=== PATIENT | female | born 1965 | race Caucasian/White ===

== ENCOUNTER 2023-04-27 09:00 | Outpatient (CLI) | payer BC, MEDICAID, SELFPAY ==
--- NOTE | 2023-04-27 09:15 | CRLHL7_ITS ---
For Patients: As a result of the Cures Act, medical imaging exams and procedure reports are released immediately into your electronic medical record. You may view this report before your referring provider. If you have questions, please contact your health care provider. INDICATION: History of DVT, noncompliant Eliquis user. COMPARISON: None. TECHNIQUE: A compression venous ultrasound exam was performed of both lower extremities using webster scale imaging, color Doppler and spectral Doppler analysis. FINDINGS: Right: Sonographic imaging of the right lower extremity demonstrates normal compressibility and color Doppler venous blood flow within the common femoral, femoral, deep femoral, and proximal greater saphenous veins. At a lower level the popliteal, peroneal, and posterior tibial veins also show normal compressibility and color Doppler venous blood flow. 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 Left: Sonographic imaging of the left lower extremity demonstrates normal compressibility and color Doppler venous blood flow within the common femoral, femoral, deep femoral, and proximal greater saphenous veins. At a lower level the popliteal, peroneal, and posterior tibial veins also show normal compressibility and color Doppler venous blood flow. IMPRESSION: Negative for acute DVT in the lower extremities. Dictated by Drea Beauchamp MD @ 04/28/2023 12:45:35 AM (Electronically Signed)
== END 2023-04-27 09:01 | disposition home or self-care (01) ==
LOC: US 09:00
PROVIDERS: PCP Nurse Practitioner Family; Visit Provider Nurse Practitioner Family
DX: Z86.718 Personal history of other venous thrombosis and embolism (principal)
CPT/HCPCS: 93970

== ENCOUNTER 2023-07-01 12:30 | Outpatient (RCR) | payer BC, SELFPAY ==
--- NOTE | 2023-06-17 11:26 | PT.OPEX ---
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 Always a little bit of pain. Some nights it can be severe pain. Pain will increase with bending, lifting, carrying and standing. Pain is bad with gardening, folding clothes or standing for 10 minutes to do dishes. When bringing vegetables in to clean she needed to sit to do it. Sitting is generally ok especially in her recliner. Can get some pain at times in R LE which will go into her quad and behind her knee. Sitting in recliner will help this. 2021 fell back and did have hairline fracture of her coccyx. Her back pain was already and issue. No specific injury caused her pain. She has had LBP for 3-5 years. Pain Comments 04/15 Current Work Status Unemployed Objective Range of Motion Trunk ROM Flex WNL - eased pain Ext mod/katherine dec R SB min dec with R LBP L SB min dec with R thigh pain Hip ROM Flex L 100 deg with LBP, 100 deg with LBP ER L 40 deg with L LBP, 65 deg with LBP IR 5 deg with L LBP, 15 deg with LBP Strength MMT Myotomes WNL - General weakness throughout LEs Trunk flex 3+/5 Trunk Ext 3+/5 Palpation Palpable pain bilat lumbar paraspinals Sensation/Reflexes Sensation intact to light touch Functional Test Performed & Score Mod Oswestry LBP score 56 Assessment Assessment/Impression Pt presents to the clinic with long standing issues of LBP. Pt demonstrates significant loss of lumbar ROM with associated pain, decrease hip ROM with LBP, significant trunk weakness with general deconditioning, painful hypomobility of lumbar spine segments and poor lumbopelvic motor control. Skilled PT is necessary to incorporate ther ex, nm minda, ther act, manual therapy and pt education to decrease pain and improve functional mobility. Primary Functional Limitations Poor tolerance with walking, standing, completing conveyor belt operator Plan of Care Rehabilitation Potential Good Physical Therapy Goals 1. Pt will be 100% independent with HEP in 6 weeks. 2. 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 3. Pt will walk for exercise up to 25 minutes with 75% decrease in pain in 12 weeks. Coordination/Communication With Referral Source Treatment Plan/Direct Interventions Joint Mobilization,Manual Therapy,Neuromuscular Re-ed, Self-Care/Home Management, Therapeutic Activities, Therapeutic Exercises Frequency/Duration 1x/wk for 12 weeks Patient Will Be Discharged From Therapy Completion of LTG(s),Skills Plateau,Independent w/HEP, Independently Progressing Evaluation Billing Untimed Code Treatment Minutes 30 Complexity Moderate Certification Information Initial Certification Date 06/17/23 Ending Certification Date 09/15/23 Provider Signature Shows Agreement With POC & Medical Necessity Physician Signature & Date Requested Please Sign/Date Here Physician Comment/Change : Physician NPI Number #
== END 2023-10-29 23:59 | disposition home or self-care (01) ==
PROVIDERS: PCP Nurse Practitioner Family; Visit Provider Nurse Practitioner Family
DX: M54.9 Dorsalgia, unspecified (principal); Z51.89 Encounter for other specified aftercare
CPT/HCPCS: 97110; 97140; 97162

== ENCOUNTER 2023-12-20 13:29 | Outpatient (CLI) | payer BC, SELFPAY | END 2023-12-20 13:30 | disposition home or self-care (01) | PROVIDERS: PCP Nurse Practitioner Family; Visit Provider Nurse Practitioner Family | DX: M79.671 Pain in right foot (principal); Z13.1 Encounter for screening for diabetes mellitus; E53.8 Deficiency of other specified B group vitamins | CPT/HCPCS: 80048; 82607; 84550; 85025; 85651; 86140 ==

== ENCOUNTER 2024-01-27 08:02 | Outpatient (CLI) | payer BC, SELFPAY ==
--- NOTE | 2024-01-27 08:15 | CRLHL7_ITS ---
For Patients: As a result of the Century Cures Act, medical imaging exams and procedure reports are released immediately into your electronic medical record. You may view this report before your referring provider. If you have questions, please contact your health care provider. INDICATION: Low back pain. TECHNIQUE: Routine multi sequence multi planar MRI imaging of the lumbar spine. FINDINGS: Sagittal alignment within normal limits. Mild convex left lumbar curve. No acute compression fractures. The conus medullaris and distal spinal cord appear normal in morphology and signal at the conus terminates normally at the L1-2 interspace. No disc herniation or stenosis at T11-12 or T12-L1. At L1-2 mild anterior disc bulging per discal spurring no posterior disc herniation or stenosis the spinal canal or neural foramen. At L2-3 degenerative disc desiccation mild annular bulge without stenosis of the spinal canal or neural foramen mild facet degeneration. At L3-4 degenerative disc desiccation mild disc bulging without stenosis of the spinal canal or neural foramen. At L4-5 normal disc height and disc hydration without disc herniation or stenosis the spinal canal or neural foramen. At L5-S1 mild central disc desiccation minor posterior annular bulge mild facet hypertrophy without stenosis of the spinal canal or neural foramen. Included portions of the sacroiliac joints are unremarkable. IMPRESSION: 1. Mild multilevel lumbar spondylosis. Mild lumbar curve. 2. Mild disc degeneration at the L1-2, L2-3, L3-4 and L5-S1 levels. 3. No high-grade central or lateral stenosis nor specific lumbosacral nerve impingement. Dictated by Abad Ty MD @ 01/28/2024 7:26:05 AM (Electronically Signed)
== END 2024-01-27 08:03 | disposition home or self-care (01) ==
LOC: MRI 08:02
PROVIDERS: PCP Nurse Practitioner Family; Visit Provider Nurse Practitioner Family
DX: M54.50 Low back pain, unspecified (principal); M47.896 Other spondylosis, lumbar region; M51.36 Other intervertebral disc degeneration, lumbar region; M51.27 Other intervertebral disc displacement, lumbosacral region
CPT/HCPCS: 72148

== ENCOUNTER 2024-05-18 15:23 | Outpatient (CLI) | payer BC, SELFPAY | END 2024-05-18 15:24 | disposition home or self-care (01) | PROVIDERS: PCP Nurse Practitioner Family; Visit Provider Nurse Practitioner Family | DX: E55.9 Vitamin D deficiency, unspecified (principal); R25.2 Cramp and spasm; E78.5 Hyperlipidemia, unspecified; Z13.0 Encounter for screening for diseases of the blood and blood-forming organs and certain disorders involving the immune mechanism | CPT/HCPCS: 80053; 80061; 82306; 83735; 85025 ==

== ENCOUNTER 2024-08-20 12:50 | Emergency (ER) | payer BC, SELFPAY ==
[2024-08-20 12:57] VITALS: BP 127/75; PULSE 87; RESP 18; TEMP 36.3; O2SAT 96; BMI 33.6
--- NOTE | 2024-08-20 13:01 | ED.GENADULT ---
HPI - General Adult General Time Seen by Provider: 13:02 Date Seen: 08/20/24 Chief complaint: Cough Stated complaint: Bronchitis for three weeks Time Seen by Provider: 08/20/24 13:01 Source: patient, RN notes reviewed and old records reviewed Mode of arrival: ambulatory Limitations: no limitations History of Present Illness HPI narrative: Tacos is a 59-year-old female with half pack-a-day tobacco use, history of COPD, history of PE currently on Eliquis who comes to the emergency room for evaluation regarding cough. Patient has had an ongoing cough for 3 weeks. She has tried the nebulizer and Mucinex for urgent cares suggestion and notes that she does have loosening of her congestion with the nebulizer but notes that the congestion is worse the next morning. She has not had fever or chills but notes that coughing sometimes last for up to 10 minutes. Her sputum is dark and green in color. She has not had any chest pain. She denies any kidney problems. She denies runny nose or sore throat at this time. Theresa denies any skipped doses of her Eliquis. Related Data Home Medications ?Medication ?Instructions ?Recorded ?Confirmed buspirone 10 mg tablet 10 mg PO 3XD 08/15/24 08/15/24 paroxetine HCl 30 mg tablet 30 mg PO DAILY 08/15/24 08/15/24 Previous Rx's ?Medication ?Instructions ?Recorded cyclobenzaprine 10 mg tablet 10 mg PO 3XD #30 tabs 05/02/24 albuterol sulfate 2.5 mg/3 mL 2.5 mg (3 mL) inhalation Q4-6H PRN 05/18/24 (0.083 %) solution for nebulization cough 30 days #90 mL albuterol sulfate 90 mcg/actuation 2 puff inhalation TID 30 days #8.5 05/18/24 aerosol inhaler (Ventolin HFA) grams apixaban 5 mg tablet (Eliquis) 5 mg PO BID #60 tabs 05/18/24 buspirone 5 mg tablet 5 mg PO BID #180 tabs 05/18/24 colchicine 0.6 mg tablet See Rx Instructions PO ONCE #21 05/18/24 tabs paroxetine HCl 20 mg tablet 20 mg PO DAILY #90 tabs 05/18/24 trazodone 100 mg tablet 100 mg PO QHS PRN insomnia #90 tabs 05/19/24 atorvastatin 20 mg tablet (Lipitor) 20 mg PO QHS #90 tabs 05/29/24 Allergies Allergy/AdvReac Type Severity Reaction Status Date / Time No Known Drug Allergies Allergy Verified 08/15/24 16:05 Review of Systems Status of ROS: Reports: 10 or more systems reviewed and unremarkable except as noted in History and below Const: Denies: fever or chills ENMT: Denies: throat pain, difficulty swallowing or nasal congestion Cardio: Reports: shortness of breath with exertion; Denies: chest pain Resp: Reports: shortness of breath and cough GI: Denies: abdominal pain or difficulty swallowing : Denies: painful urination Musculo: Denies: back pain Integ/Breast: Denies: rash PFSH PFSH Surgical History History of tonsillectomy ?Z90.89 - Acquired absence of other organs (ICD-10) History of hand surgery ?Z98.890 - Other specified postprocedural states (ICD-10) History of ?Z98.891 - History of uterine scar from previous surgery (ICD-10) Social History Narrative: . 3 children. No regular exercise. Current everyday smoker, a pack per day. 3 or 4 cans of beer per day. Marijuana use. Smoking Status: Current every day smoker What tobacco products do you use: cigarettes Do you use any of these nicotine containing products: None Second hand tobacco smoke exposure: No How often do you have a drink containing alcohol: never How often do you have six or more drinks on one occasion: Never AUDIT-C Alcohol total score: 0 Non-prescribed substance use: denies use service: No Exam Narrative: Exam Narrative: Alert and oriented. Smells of tobacco. Mentating normally. Heart with regular rate and rhythm. Lungs show crackles and wheezing especially left lower lung base. Apices are clear. Abdomen soft. Moving all extremities. Const: Vital Signs, click to edit/add: Vital Signs - 24 hr 08/20/24 12:57 Temperature 97.3 F L Pulse Rate [Pulse Oximeter] 87 Respiratory Rate 18 Blood Pressure [Ri ght Upper Arm] 127/75 Pulse Oximetry 96 Oxygen Delivery Me thod Room Air Documenting provider has reviewed patient's vital signs: yes Course Course ED Course: Differential diagnosis includes but is not limited to bronchitis, COPD exacerbation, COVID, influenza, pneumonia. Usually I would also consider PE but patient is on a blood thinner and has not missed any doses. She has no leg symptoms or chest pain or hypoxia to suggest PE at this time. Will obtain chest x-ray, triple viral swab has been accomplished. Vital Signs Vital signs: Initial Vital Signs Temperature 97.3 F L 08/20/24 12:57 Temperature Source Temporal Artery Scan 08/20/24 12:57 Pulse Rate 87 08/20/24 12:57 Pulse Rhythm Regular 08/20/24 12:57 Respiratory Rate 18 08/20/24 12:57 Blood Pressure 127/75 08/20/24 12:57 Blood Pressure Mean 92 08/20/24 12:57 Blood Pressure Position Sitting 08/20/24 12:57 Pulse Oximetry 96 08/20/24 12:57 Oxygen Delivery Method Room Air 08/20/24 12:57 Vital Signs Temperature 97.3 F L 08/20/24 12:57 Pulse Rate 87 08/20/24 12:57 Respiratory Rate 18 08/20/24 12:57 Blood Pressure 127/75 08/20/24 12:57 Pulse Oximetry 96 08/20/24 12:57 Oxygen Delivery Method Room Air 08/20/24 12:57 Temperature 97.3 F L 08/20/24 12:57 Pulse Rate 87 08/20/24 12:57 Respiratory Rate 18 08/20/24 12:57 Blood Pressure 127/75 08/20/24 12:57 Pulse Oximetry 96 08/20/24 12:57 Oxygen Delivery Method Room Air 08/20/24 12:57 Medical Decision Making MDM Narrative Medical decision making narrative: 1. Bronchitis-patient noted to have 3 weeks of continued cough. Breath sounds suggest pneumonia but chest x-ray is clear at this time. Recommend Augmentin 875 p.o. b.i.d. times 14 days. Patient notes that she gets stomach upset when she tries to take steroids but is receptive to IM dexamethasone 10 mg which is given prior to departure. Patient is requesting cough medication. She states that she cannot afford to buy it. Therefore guaifenesin is available via [email or web address] voucher and this is given to her. She will have to fill is tomorrow and [facility] as it is not open today. Guaifenesin 200-400 mg p.o. q.4-6 hours p.r.n.. 2. Disposition-home at this time. Seek medical attention for worsening symptoms and as needed. Medical Records Medical records reviewed: Yes I reviewed the patient's medical records Lab Data Lab results reviewed: Yes I reviewed the patient's lab results Labs: Lab Results 08/20/24 Range/Units 13:00 SARS-CoV-2 (PCR) Negative SARS-CoV-2 (Negative) Influenza Type A (PCR) Negative PCR FLU A (Negative) Influenza Type B (PCR) Negative PCR FLU B (Negative) RSV (PCR) Negative PCR RSV (Negative) Imaging Data Chest x-ray: Attestation: I have reviewed the pertinent imaging results. My impression: No obvious infiltrates noted by my read. Radiologist's impression: FINDINGS: The sensitivity and specificity of the exam are severely limited by the patient`s body habitus. Mediastinum: The mediastinum is normal in appearance. The heart silhouette is normal in size and morphology. Lung: Both lungs are unremarkable in appearance. No sign of pleural effusion seen. No pneumothorax is identified. Bone and Soft tissue: Unremarkable for age. IMPRESSION: 1. No acute cardiopulmonary disease is seen. Discharge Plan Discharge Clinical Impression: Bronchitis Patient Disposition: Home, Self-Care Condition: Unchanged Additional Instructions: Guaifenesen. cough medicine, can be filled tomorrow at [facility] with the voucher supplied. Augmentin is an antibiotic for your bronchitis that can be obtained in our insty med box in the waiting room maintain good hydration. Followup with your primary md this week for recheck Prescriptions: No Action paroxetine HCl 30 mg tablet 30 mg PO DAILY buspirone 10 mg tablet 10 mg PO 3XD albuterol sulfate 2.5 mg /3 mL (0.083 %) solution for nebulization 2.5 mg inhalation Q4-6H PRN (Reason: cough) 30 Days Qty: 90 6RF albuterol sulfate [Ventolin HFA] 90 mcg/actuation HFA aerosol inhaler 2 puff inhalation TID 30 Days Qty: 8.5 11RF Eliquis 5 mg tablet 5 mg PO BID Qty: 60 11RF buspirone 5 mg tablet 5 mg PO BID Qty: 180 3RF paroxetine HCl 20 mg tablet 20 mg PO DAILY Qty: 90 3RF colchicine 0.6 mg tablet See Rx Instructions PO ONCE Qty: 21 3RF Rx Instructions: 1.2 mg at the 1st sign of flare, followed by 0.6 mg after 1 hour maximum dose 1.8 per day on day 1; then 0.6 once or twice daily until flare resolves trazodone 100 mg tablet 100 mg PO QHS PRN (Reason: insomnia) Qty: 90 3RF cyclobenzaprine 10 mg tablet 10 mg PO 3XD Qty: 30 5RF atorvastatin [Lipitor] 20 mg tablet 20 mg PO QHS Qty: 90 3RF Follow Up/Referrals: Georgia Cruz, TABLE AND DESK FINISHER, TOOLROOM HELPER [Primary Care Provider] - Stand Alone Forms: My[facility] Info Instructions
--- NOTE | 2024-08-20 13:06 | CRLHL7_ITS ---
For Patients: As a result of the Cures Act, medical imaging exams and procedure reports are released immediately into your electronic medical record. You may view this report before your referring provider. If you have questions, please contact your health care provider. INDICATION: Cough TECHNIQUE: Chest radiograph 1 view on 2 films COMPARISON: None FINDINGS: The sensitivity and specificity of the exam are severely limited by the patient`s body habitus. Mediastinum: The mediastinum is normal in appearance. The heart silhouette is normal in size and morphology. Lung: Both lungs are unremarkable in appearance. No sign of pleural effusion seen. No pneumothorax is identified. Bone and Soft tissue: Unremarkable for age. IMPRESSION: 1. No acute cardiopulmonary disease is seen. Dictated by Devonte Clancy MD @ 08/20/2024 1:34:39 PM Dictated by: Devonte Clancy MD @ 08/20/2024 13:34:42 (Electronically Signed)
[2024-08-20 13:42] LABS: PCR FLU A Negative PCR FLU A (Negative); PCR FLU B Negative PCR FLU B (Negative); PCR RSV Negative PCR RSV (Negative); SARS PCR* Negative SARS-CoV-2 (Negative)
== END 2024-08-20 14:07 | disposition home or self-care (01) ==
PROVIDERS: Emergency Provider Family Medicine; PCP Nurse Practitioner Family
DX: J40 Bronchitis, not specified as acute or chronic (principal)
CPT/HCPCS: 71045; 87631; 99283; 99284

== ENCOUNTER 2025-03-16 09:58 | Outpatient (CLI) | payer BC, SELFPAY | END 2025-03-16 09:59 | disposition home or self-care (01) | PROVIDERS: PCP Nurse Practitioner Family; Visit Provider Nurse Practitioner Family | DX: R20.2 Paresthesia of skin (principal); Z13.1 Encounter for screening for diabetes mellitus | CPT/HCPCS: 82607; 82947; 84443 ==